=== PATIENT | female | born 1970 | race Two or more races ===

== ENCOUNTER 2021-08-04 08:36 | Outpatient (AMBR) | payer OTHER, SELFPAY ==
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
--- NOTE | 2021-07-28 09:19 | PT.ODAYNRPT ---
PT Outpatient Daily Note Date of Service: 07/28/2021 OP Daily Note Visit Reasons: low back pain Outpatient Physical Therapy Treatment Date: 07/28/21 Subjective: pt came in with back pain. she states she does take pain meds but no muscle relaxers. Objective: see flow sheet. Assessment: pt did have increase in pain on the RLE than the LLE. noted she had difficulty with the RLE stretching the H.S muscles. the LLE was fine and tolerable. she needed assistance with bed mobility in which she still had pain from getting up from supine. she completed with sci fit and she did have discomfort. Plan: continue POC per PT. Length of Time (minutes) of Treatment: 30 Minutes Office Procedures PT Treatments PT Date of Service: 07/24/21 OP PT Eval Mod Complex 30 minutes: Yes
--- NOTE | 2021-07-31 09:34 | PT.ODAYNRPT ---
PT Outpatient Daily Note Date of Service: 07/31/2021 OP Daily Note Visit Reasons: low back pain Outpatient Physical Therapy Treatment Date: 07/31/21 Subjective: pt states she was sore last visit but it go away. she c/o RLE pain during exercises. Objective: see flow sheet. Assessment: pt does have more discomfort when stretching the R side could be due to muscle tightness. she does have good ROM with SKTC stretch for BLE. she can maintain her stretch for all reps. pt does need assistance with bed mobility due to back pain. pt had no questions post treatment. Plan: continue POC per PT. Length of Time (minutes) of Treatment: 30 Minutes Office Procedures PT Treatments PT Date of Service: 07/31/21 Therapeutic Exercise 30 minutes: Yes PT Treatments PT Date of Service: 07/24/21 OP PT Eval Mod Complex 30 minutes: Yes PT Treatments PT Date of Service: 07/28/21 Therapeutic Exercise 30 minutes: Yes
--- NOTE | 2021-08-04 09:11 | PT.ODAYNRPT ---
PT Outpatient Daily Note Date of Service: 08/04/2021 OP Daily Note Visit Reasons: low back pain Outpatient Physical Therapy Treatment Date: 08/04/21 Subjective: pt came in with the same back pain. Objective: see flow sheet. Assessment: educated pt on bed mobility as she needed help to sit up. she demonstrated log roll but needs more practice. added new exercise; bridges in which she was able to lift her buttocks with posterior pelvic rotation. pt did not c/o pain with the new exercise but made facial expression indicating discomfort. Plan: continue POC per PT. Office Procedures PT Treatments PT Date of Service: 07/31/21 Therapeutic Exercise 30 minutes: Yes PT Treatments PT Date of Service: 08/04/21 Therapeutic Exercise 30 minutes: Yes PT Treatments PT Date of Service: 07/24/21 OP PT Eval Mod Complex 30 minutes: Yes PT Treatments PT Date of Service: 07/28/21 Therapeutic Exercise 30 minutes: Yes
== END 2021-08-04 23:59 | disposition home or self-care (01) ==
PROVIDERS: PCP Nurse Practitioner Family; Referring Provider Nurse Practitioner Family; Visit Provider Nurse Practitioner Family
DX: M54.50 Low back pain, unspecified (principal); G89.29 Other chronic pain; R26.2 Difficulty in walking, not elsewhere classified
CPT/HCPCS: 97110; 97162

== ENCOUNTER → 2024-09-08 | Outpatient (CLI) | payer OTHER, SELFPAY ==
[2024-09-08 08:10] LABS: Collection Type, Urine Clean Catch
[2024-09-08 08:29] LABS: Calcium, Ionized 4.6 mg/dL (4.6-5.6)
[2024-09-08 08:35] LABS: Bilirubin,Urine Negative (Negative); Blood,Urine Negative (Negative); Clarity,Urine Clear (Clear/Hazy); Color,Urine Lt-Yellow (Lt Yel-Yel); Glucose, Urine Negative (Negative); Ketones,Urine Negative (Negative); Leukocyte Esterase,Urine Negative (Negative); Nitrite,Urine Negative (Negative); Protein,Urine Negative (Neg - Trace); RBC,Urine < 1 /hpf (0-3); Specific Gravity,Urine 1.016 (1.001-1.035); Squamous Epithelial Cell,Urine 1 /hpf (0-5); Urobilinogen,Urine Negative mg/dL (0.0-1.0); WBC,Urine < 1 /hpf (0-5)
[2024-09-08 08:41] LABS: Basophils % (Auto) 0 % (0-2.5); Eosinophils # (Auto) 0.1 Thou/mm3 (0.0-0.5); Eosinophils % (Auto) 2 % (0-10); Hematocrit 42.3 % (36.0-46.0); Hemoglobin 13.7 g/dL (12.0-16.0); Immature Granulocytes % (Auto) 0 % (0-0); Immature Granulocytes Auto 0.02 Thou/mm3 (0.00-0.00); Lymphocytes # (Auto) 1.5 Thou/mm3 (1.0-4.8); Lymphocytes % (Auto) 25 % (10-50); Mean Corpuscular HGB Conc 32.4 g/dl (31.0-37.0); Mean Corpuscular Hemoglobin 28.8 pg (25.0-35.0); Mean Corpuscular Volume 89 fL (80-100); Monocytes # (Auto) 0.3 Thou/mm3 (0.0-0.8); Monocytes % (Auto) 5 % (0-12); Neutrophils # (Auto) 4.1 Thou/mm3 (1.8-7.7); Neutrophils % (Auto) 68 % (37-80); Nucleated Red Blood Cell % 0 /100 WBC (0); Platelet Count 178 Thou/mm3 (140-440); RDW Standard Deviation 43.7 fL (36.4-46.3); Red Blood Count 4.75 Miln/mm3 (4.00-5.20); White Blood Count 6.1 Thou/mm3 (3.6-11.0)
[2024-09-08 08:48] LABS: Alanine Aminotransferase 14 U/L (10-49); Albumin, Serum 4.3 gm/dL (3.5-5.0); Albumin/Globulin Ratio 1.7 (1.2-2.2); Alkaline Phosphatase 78 U/L (46-116); Anion Gap 7 (7-16); Aspartate Amino Transferase 20 U/L (0-34); BUN/Creatinine Ratio 17 Ratio (12-20); Bilirubin,Total 0.9 mg/dL (0.3-1.2); Blood Urea Nitrogen 15 mg/dL (9-23); Calcium 8.9 mg/dL (8.3-10.6); Calcium (Corrected) 8.9 mg/dL (8.5-10.1); Carbon Dioxide 24.6 mMol/L (20.0-31.0); Cardiac Risk Estimate 4.1 RATIO (3.7-5.6); Chloride 109 mMol/L (98-107); Cholesterol 256 mg/dL (132-200); Creatinine (Component) 0.9 mg/dL (0.6-1.3); Free T3 3.3 pg/mL (2.3-4.2); Free T4 (Free Thyroxine) 1.39 ng/dL (0.89-1.76); Globulin 2.5 gm/dL (2.3-3.5); Glucose 98 mg/dL (74-106); HDL Cholesterol 62 mg/dL (40-60); LDL Cholesterol,Calculated 160 mg/dL (0-130); Osmolality,Calculated 282 (275-295); Potassium 4.4 mMol/L (3.4-5.1); Sodium 141 mMol/L (136-145); Thyroid Stimulating Hormone 1.55 uIU/mL (0.55-4.78); Total Protein 6.8 gm/dL (5.7-8.2); Triglycerides 169 mg/dL (30-150); eGFR > 60 See Note
[2024-09-08 09:12] LABS: Glucose Estimated Average 105 mg/dL (80-131); Hemoglobin A1C 5.3 % Hgb (4.8-6.0)
[2024-09-08 09:14] LABS: Parathyroid Hormone Intact 84.6 pg/ml (18.5-88.0)
[2024-09-08 09:19] LABS: Folate 17.79 ng/mL (>5.38); Vitamin B12 529 pg/mL (211-911); Vitamin D 25 Hydroxy Total 63.5 ng/mL (7.3-40.2)
== END | disposition home or self-care (01) ==
LOC: COPL 07:41
PROVIDERS: PCP Family Medicine; Referring Provider Nurse Practitioner Family; Visit Provider Nurse Practitioner Family
DX: Z00.01 Encounter for general adult medical examination with abnormal findings (principal); Z13.1 Encounter for screening for diabetes mellitus; E78.2 Mixed hyperlipidemia; E04.1 Nontoxic single thyroid nodule; R53.83 Other fatigue
CPT/HCPCS: 36415; 80053; 80061; 81001; 82306; 82330; 82607; 82746; 83036; 83970; 84439; 84443; 84481; 85025; 87086

== ENCOUNTER → 2024-10-09 | Outpatient (CLI) | payer OTHER, SELFPAY ==
--- NOTE | 2024-10-09 09:00 | XR_ITS ---
Examination: Abdomen sonogram, complete Date and time of exam: October 09, 2024 at 0941 hrs. Indications: Onset lower abdominal pain beginning 2 months ago.. Technique: Multiple real-time grayscale transabdominal sonographic images of the abdomen have been obtained. Findings: Normal gallbladder. Normal common bile duct 0.2 cm Pancreatic head 2.5 cm Aorta not enlarged. Liver 13.15 infiltration Normal hepatopedal portal venous flow Patent IVC Right kidney 9.7 cm renal cortex 1.4 cm Left kidney 11.9 cm renal cortex 2.0 cm Moderate bilateral renal parenchymal scar formation Spleen is not enlarged Impression: Normal gallbladder Moderate bilateral renal parenchymal scar formation
--- NOTE | 2024-10-09 09:30 | XR_ITS ---
Examination: Screening digital mammography, bilateral Computer aided detection 3-D breast Tomosynthesis, bilateral Date and time of exam: 10/09/2024, 9:20 AM Comparisons: May 2021 through March 2026 Indications: Screening Technique: Nonmagnified MLO, CC views of the breasts to been obtained, reconstructed from 3-D Tomosynthesis images. R2 computer aided detection program utilized for evaluation of suspicious masses and/or abnormal calcifications. 3-D Tomosynthesis images obtained. Technologist: Findings: The breasts are heterogeneously dense, which may obscure small masses. No evidence of abnormal masses or suspicious calcifications. Bilateral postbiopsy marker clips. Impression: BI-RADS category 2: Benign findings Recommend 1 year follow-up mammogram
== END | disposition home or self-care (01) ==
PROVIDERS: PCP Nurse Practitioner Family; Referring Provider Nurse Practitioner Family; Visit Provider Nurse Practitioner Family
DX: Z12.31 Encounter for screening mammogram for malignant neoplasm of breast (principal); R92.323 Mammographic fibroglandular density, bilateral breasts; N28.89 Other specified disorders of kidney and ureter
CPT/HCPCS: 76700; 77063; 77067

== ENCOUNTER → 2025-02-13 | Outpatient (CLI) | payer OTHER, SELFPAY ==
--- NOTE | 2025-02-13 09:04 | XR_ITS ---
Examination: Ultrasound soft tissue neck TECHNIQUE: Grayscale sonographic images soft tissue neck Date and time: February 13, 2025 0918 hours INDICATIONS: Neck pain years, neck sonogram April 21, 2023 cervical lymphadenopathy FINDINGS: Sonographic images soft tissue right neck demonstrate multiple lymph nodes, the largest 14 x 7 mm Incidental note lower pole right thyroid nodule vascular 17 x 13 mm IMPRESSION: Multiple soft tissue right neck lymph nodes, the largest 14 x 3 x 7 mm Lower pole vascular right thyroid nodule 17 x 13 mm, consider dedicated thyroid sonography follow-up
== END | disposition home or self-care (01) ==
PROVIDERS: PCP Nurse Practitioner Family; Referring Provider Nurse Practitioner Family; Visit Provider Nurse Practitioner Family
DX: E04.1 Nontoxic single thyroid nodule (principal)
CPT/HCPCS: 76536

== ENCOUNTER → 2025-04-18 | Outpatient (CLI) | payer OTHER, SELFPAY ==
--- NOTE | 2025-04-18 13:00 | XR_ITS ---
EXAMINATION: CT chest without contrast Date and time: April 18, 2025, 1257 hours INDICATIONS: Localized right-sided neck pain and swelling chest pain 1 year TECHNIQUE: Multiple CT chest images 3.0 mm slice thickness 2D sagittal and coronal reconstructions 3D reconstructions FINDINGS: No thoracic aortic aneurysm dilatation. Pulmonary artery segments are not enlarged. No paratracheal or tracheobronchial or bronchopulmonary adenopathy. 2 mm calcified granuloma in the right upper lobe No pneumonia pulmonary edema or pleural disease No noncalcified pulmonary nodules identified No visualized liver or splenic lesion No gallstones Hypodense mass in the tail the pancreas with septation, 29 x 32 mm Moderate osteopenia IMPRESSION: No mediastinal lymphadenopathy No noncalcified pulmonary nodules 29 x 32 mm septated partially cystic mass in the tail the pancreas, consider hypercellular pancreatic tumor, recommend MRI abdomen follow-up pre and postcontrast
== END | disposition home or self-care (01) ==
LOC: CCTX 12:39
PROVIDERS: PCP Nurse Practitioner Family; Referring Provider Nurse Practitioner Family; Visit Provider Nurse Practitioner Family
DX: K86.2 Cyst of pancreas (principal)
CPT/HCPCS: 71250

== ENCOUNTER → 2025-04-27 | Outpatient (CLI) | payer OTHER, SELFPAY ==
--- NOTE | 2025-04-27 14:00 | XR_ITS ---
EXAMINATION: Thyroid sonography complete TECHNIQUE: Multiple grayscale sonographic images thyroid lobes Date and time: April 27, 2025 1409 hours, comparison February 13, 2025 INDICATIONS: Thyroid sonogram February 13, 2025 lower pole vascular right thyroid nodule 17 x 13 mm FINDINGS: Right thyroid 5.0 cm Lower pole vascular nodule 16 x 8 x 12 mm Left thyroid 4.7 cm No thyroid nodules IMPRESSION: Lower pole right thyroid nodule with indistinct margins, recommend ultrasound-guided fine-needle aspiration of this nodule
[2025-04-27 15:47] LABS: Anion Gap 10 (7-16); BUN/Creatinine Ratio 14 Ratio (12-20); Blood Urea Nitrogen 11 mg/dL (9-23); Calcium 9.0 mg/dL (8.3-10.6); Carbon Dioxide 25.8 mMol/L (20.0-31.0); Chloride 108 mMol/L (98-107); Creatinine (Component) 0.8 mg/dL (0.6-1.3); Glucose 108 mg/dL (74-106); Osmolality,Calculated 287 (275-295); Potassium 3.7 mMol/L (3.4-5.1); Sodium 144 mMol/L (136-145); eGFR > 60 See Note
== END | disposition home or self-care (01) ==
LOC: CDIM 13:47 → COPL 14:21
PROVIDERS: PCP Nurse Practitioner Family; Referring Provider Nurse Practitioner Family; Visit Provider Radiology Diagnostic Radiology
DX: E04.1 Nontoxic single thyroid nodule (principal); K86.2 Cyst of pancreas
CPT/HCPCS: 36415; 76536; 80048

== ENCOUNTER → 2025-04-30 | Outpatient (CLI) | payer OTHER, SELFPAY ==
--- NOTE | 2025-04-30 17:00 | XR_ITS ---
Examination: MRI abdomen with intravenous contrast. MRI abdomen without intravenous contrast. Date and time of exam: April 30, 2025, 1825 hours INDICATIONS: History 29 x 32 mm septated partially cystic mass in the tail of the pancreas on CT abdomen study April 18, 2025 Technique: Multiple axial, sagittal and coronal sections of the abdomen obtained. Transverse images, TR 6020, TE 107. T1 weighted transverse images, TR 582, TE 9.5. T2-weighted sagittal images, TR 4000, TE 105. T2-weighted sagittal images, TR 4000, TE 5. Coronal images, TR 4210, TE 107. Axial and coronal images are obtained post 20 cc intravenous injection, gadolinium. Findings: No focal liver lesions, negative for gallstones, no common hepatic common bile duct stones Precontrast images demonstrate septated cystic mass tail of pancreas 37 x 30 mm Postcontrast images demonstrate minimal rim enhancement of this primarily cystic mass No dilatation pancreatic duct Severe scarring right kidney with mild right hydronephrosis Spleen not enlarged No ascites No abdominal lymphadenopathy Normal adrenal glands IMPRESSION: Septated cystic mass tail of pancreas 37 x 30 mm with minimal rim-like enhancement Recommend 3 to 6-month follow-up MRI abdomen pre and postcontrast to document stability of this mass
== END | disposition home or self-care (01) ==
PROVIDERS: PCP Nurse Practitioner Family; Referring Provider Nurse Practitioner Family; Visit Provider Nurse Practitioner Family
DX: K86.2 Cyst of pancreas (principal)
CPT/HCPCS: 74183; A9577

== ENCOUNTER → 2025-05-03 | Outpatient (CLI) | payer OTHER, SELFPAY ==
--- NOTE | 2025-05-03 16:45 | XR_ITS ---
Examination: MRI orbits face neck without intravenous contrast INDICATIONS: Dizziness pressure in the face numbness 6 months, frequent sinus infections, carotid triangle lymph nodes on MRI ORBIT face neck November 16, 2023 Date and time of exam: May 03, 2025, 1731 hours, comparison November 16, 2023 Technique: Multiple MRI axial and sagittal sections orbits face neck Sagittal T2-weighted images, TR 3500, TE 118 T1 weighted transverse sections, TR 688 T8.5, T2-weighted sagittal sections T1 weighted sagittal sections TR 621, TE 30 T2 axial sections, TR 4, 190, TE 84. Findings: Maxillary antra are clear Symmetrical nasopharynx oropharynx Nonspecific subcentimeter parotid triangle lymph nodes Normal supraglottic region The larynx appears normal Symmetrical thyroid lobes Normal epiglottis No prevertebral soft tissue prominence Satisfactory alignment cervical vertebral bodies IMPRESSION: Nonspecific cervical lymphadenopathy No abnormal enhancing oropharyngeal or nasopharyngeal mass Normal larynx Normal epiglottis CT sinus series follow-up would be best in assessing for sinusitis
== END | disposition home or self-care (01) ==
LOC: SMRI 16:35
PROVIDERS: PCP Nurse Practitioner Family; Referring Provider Nurse Practitioner Family; Visit Provider Nurse Practitioner Family
DX: R59.0 Localized enlarged lymph nodes (principal)
CPT/HCPCS: 70540

== ENCOUNTER → 2025-06-21 | Outpatient (CLI) | payer OTHER, SELFPAY ==
[2025-06-21 11:39] LABS: Free T4 (Free Thyroxine) 1.33 ng/dL (0.89-1.76); Thyroid Stimulating Hormone 0.60 uIU/mL (0.55-4.78)
[2025-07-02 07:07] LABS: TSI, Thyroid Stimulating Ig* <89 % baseline (<140); Thyroglobulin Antibodies* <1 IU/mL (< OR = 1); Thyroid Peroxidase Antibodies* 1 IU/mL (<9)
== END | disposition home or self-care (01) ==
LOC: COPL 10:10
PROVIDERS: PCP Family Medicine; Referring Provider Internal Medicine Endocrinology, Diabetes & Metabolism; Visit Provider Internal Medicine Endocrinology, Diabetes & Metabolism
DX: Z01.89 Encounter for other specified special examinations (principal)
CPT/HCPCS: 36415; 84439; 84443; 84445; 86376; 86800